=== PATIENT | female | born 1990 | race Caucasian/White ===

== ENCOUNTER 2019-04-22 22:03 | Emergency (ER) | payer OTHER ==
[~2019-04-22] VITALS: Ht 160 cm; Wt 78.0 kg
[2019-04-22] MEDS ORDERED: OBSTETRIX DHA1 EACH (22:16)
== END 2019-04-23 03:38 | disposition home or self-care (01) ==
LOC: ER 22:03
DX: O20.0 Threatened abortion (principal)

== ENCOUNTER 2019-06-15 15:05 | Outpatient (CLI) | payer OTHER ==
[~2019-06-15 15:05] MED LIST: OBSTETRIX DHA1 EACH
== END 2019-06-15 16:30 | disposition home or self-care (01) ==
LOC: PRENATAL 15:05
DX: O35.3XX1 Maternal care for (suspected) damage to fetus from viral disease in mother, fetus 1 (principal); Z34.02 Encounter for supervision of normal first pregnancy, second trimester

== ENCOUNTER → 2019-10-12 | Outpatient (CLI) | payer OTHER | END | disposition home or self-care (01) | LOC: PRENATAL 14:30 | DX: O26.843 Uterine size-date discrepancy, third trimester (principal); O36.8191 Decreased fetal movements, unspecified trimester, fetus 1 ==

== ENCOUNTER 2019-11-04 10:16 | Inpatient (IN) | payer OTHER ==
[~2019-11-04] VITALS: Ht 160 cm; Wt 96.6 kg
[2019-11-12] MEDS ORDERED: VISTARIL25 MG PO (06:13)
== END 2019-11-07 15:55 | disposition home or self-care (01) | DRG 807 ==
LOC: OB/GYN 10:16 → LDR 10:16 → OB/GYN 11-05 03:31
PROVIDERS: ADMIT Obstetrics & Gynecology Obstetrics
PROC: 10E0XZZ Delivery of Products of Conception, External Approach (ICD-10-PCS; principal; 2019-11-04)
PROC: 3E0P7VZ Introduction of Hormone into Female Reproductive, Via Natural or Artificial Opening (ICD-10-PCS; 2019-11-04)
PROC: 3E033VJ Introduction of Other Hormone into Peripheral Vein, Percutaneous Approach (ICD-10-PCS; 2019-11-04)
PROC: 4A1HXCZ Monitoring of Products of Conception, Cardiac Rate, External Approach (ICD-10-PCS; 2019-11-04)
DX: O80 Encounter for full-term uncomplicated delivery (principal); Z37.0 Single live birth; Z3A.40 40 weeks gestation of pregnancy

== ENCOUNTER → 2019-11-12 | Emergency (ER) | payer OTHER ==
[~2019-11-12] VITALS: Ht 165.1 cm; Wt 77.1 kg
[~2019-11-12] MED LIST changes: +VISTARIL25 MG PO
== END | disposition home or self-care (01) ==
LOC: ER 01:54
DX: R06.02 Shortness of breath (principal)